=== PATIENT | female | born 1970 | race Caucasian/White ===

== ENCOUNTER → 2016-04-01 | Outpatient (CLI) | payer OTHER | LOC: RAD 14:36 | PROVIDERS: ATTEND Family Medicine | DX: J01.00 Acute maxillary sinusitis, unspecified (principal) | CPT/HCPCS: 70486 ==

== ENCOUNTER 2017-02-27 17:33 | Emergency (ER) | payer OTHER ==
[2017-02-27] MEDS ORDERED: KETOROLAC TROMETHAMINE INJ/PF 30 MG/1 ML SDV IV ONE (17:51)
[2017-02-27] MEDS ORDERED: NORMAL SALINE 1000 ML 1,000 ML IV ONE (17:51)
[2017-02-27] MEDS ORDERED: ONDANSETRON HCL INJ/PF 4 MG/2 ML SDV IV ONE (17:51)
--- NOTE | 2017-02-27 17:56 | ER Document Report ---
ED Medical Screen (RME) - General Chief Complaint: Abdominal Pain Stated Complaint: ABD PAIN Time Seen by Provider: 02/27/17 17:51 Mode of Arrival: Ambulatory Information source: Patient TRAVEL OUTSIDE OF THE [place] IN LAST 30 DAYS: No - HPI Patient complains to provider of: RLQ abd pain Onset: Yesterday - pt with onset of RLQ abdominal pain since yesterday with exacbation today, with vomiting and diarrhea - Related Data Allergies/Adverse Reactions: warfarin sodium [From Coumadin] Allergy (Verified 07/01/15 11:49) chest tightness Past Medical History - Social History Chew tobacco use (# tins/day): No Frequency of alcohol use: None Drug Abuse: None - Past Medical History Cardiac Medical History: Reports: Hx DVT, Hx Hypertension Denies: Hx Coronary Artery Disease, Hx Heart Attack Pulmonary Medical History: Denies: Hx Asthma - as a child , Hx Bronchitis, Hx COPD, Hx Pneumonia Neurological Medical History: Reports: Hx Migraine. Denies: Hx Cerebrovascular Accident, Hx Seizures Renal/ Medical History: Reports: Hx Kidney Stones. Denies: Hx Peritoneal Dialysis Musculoskeltal Medical History: Denies Hx Arthritis Psychiatric Medical History: Reports: Hx Depression Past Surgical History: Reports: Hx Section - post op hemorrhage - Immunizations Hx Diphtheria, Pertussis, Tetanus Vaccination: Yes - 2004 Physical Exam - Vital signs Vitals: Temp Pulse BP Pulse Ox 99.2 F 101 H 128/77 H 98 02/27/17 17:41 02/27/17 17:41 02/27/17 17:41 02/27/17 17:41 Course - Vital Signs Vital signs: Temp Pulse Resp BP Pulse Ox 99.2 F 101 H 128/77 H 98 02/27/17 17:41 02/27/17 17:41 02/27/17 17:41 02/27/17 17:41
[2017-02-27 18:38] LABS: ABSOLUTE BASOPHILS # (AUTO) 0.1 10^3/uL (0.0-0.2); ABSOLUTE EOSINOPHILS # (AUTO) 0.2 10^3/uL (0.0-0.6); ABSOLUTE LYMPHOCYTES (AUTO) 1.6 10^3/uL (0.5-4.7); ABSOLUTE MONOCYTES (AUTO) 0.7 10^3/uL (0.1-1.4); ABSOLUTE NEUT (AUTO) 3.8 10^3/uL (1.7-8.2); BASOPHILS % (AUTO) 0.9 % (0-2); EOSINOPHILS % (AUTO) 3.3 % (0-6); HEMATOCRIT 36.7 % (36.0-47.0); HGB HCT DIFFERENCE -0.7; LYMPHOCYTES % (AUTO) 25.8 % (13-45); MEAN CORPUSCULAR HEMOGLOBIN 26.1 pg (27.0-33.4); MEAN CORPUSCULAR HGB CONC 32.7 g/dL (32.0-36.0); MEAN CORPUSCULAR VOLUME 80 fl (80-97); MONOCYTES % (AUTO) 10.3 % (3-13); RED BLOOD COUNT 4.59 10^6/uL (3.72-5.28); RED CELL DISTRIBUTION WIDTH 16.1 % (11.5-14.0); SEGMENTED NEUTROPHILS % (AUTO) 59.7 % (42-78); WHITE BLOOD COUNT 6.4 10^3/uL (4.0-10.5)
[2017-02-27 18:45] LABS: APPEARANCE,URINE CLEAR; BILIRUBIN,URINE NEGATIVE (NEGATIVE); GLUCOSE, URINE NEGATIVE (NEGATIVE); KETONES,URINE NEGATIVE (NEGATIVE); LEUKOCYTE ESTERASE,URINE NEGATIVE (NEGATIVE); NITRITE,URINE NEGATIVE (NEGATIVE); PROTEIN,URINE NEGATIVE (NEGATIVE); URINE SPECIFIC GRAVITY 1.002; UROBILINOGEN,URINE NEGATIVE mg/dL (<2.0)
[2017-02-27 18:49] LABS: BACTERIA,URINE 1+ /HPF
[2017-02-27 18:53] LABS: ALANINE AMINOTRANSFERASE 29 U/L (9-52); ALBUMIN 4.3 g/dL (3.5-5.0); ALKALINE PHOSPHATASE 75 U/L (38-126); ANION GAP 13 (5-19); ASPARTATE AMINO TRANSFERASE 23 U/L (14-36); BILIRUBIN,DIRECT 0.2 mg/dL (0.0-0.4); BILIRUBIN,TOTAL 0.4 mg/dL (0.2-1.3); BLOOD UREA NITROGEN 7 mg/dL (7-20); CARBON DIOXIDE 25 mmol/L (22-30); CHLORIDE 101 mmol/L (98-107); CREATININE RESULT 0.66 mg/dL (0.52-1.25); GLUCOSE 89 mg/dL (75-110); LIPASE 122.1 U/L (23-300); POTASSIUM 4.3 mmol/L (3.6-5.0); SODIUM 139.1 mmol/L (137-145); TOTAL PROTEIN 6.9 g/dL (6.3-8.2)
--- NOTE | 2017-02-27 19:03 | RADIOLOGY REPORT (SQ) ---
EXAM DESCRIPTION: CT ABD/PELVIS NO ORAL OR IV COMPLETED DATE/TIME: 02/27/2017 6:38 pm REASON FOR STUDY: abd pain COMPARISON: 06/04/2013 mammogram TECHNIQUE: CT scan of the abdomen and pelvis performed without intravenous or oral contrast. Images reviewed with lung, soft tissue, and bone windows. Reconstructed coronal and sagittal MPR images revi ewed. All images stored on PACS. All CT scanners at this facility use dose modulation, iterative reconstruction, and/or weight based d osing when appropriate to reduce radiation dose to as low as reasonably achievable (ALARA). [facility]: Dose Right [facility]: CareDose [facility]: Dose Right [facility]: Teradose 4D [facility]: HiMom RADIATION DOSE: mGy. LIMITATIONS: None. FINDINGS: LOWER CHEST: Similar 4.5 cm cyst in the medial right breast. No nodules or infiltrates. NON-CONTRASTED LIVER, SPLEEN, ADRENALS: Evaluation limited by lack of IV contrast. No identified sign ificant masses. PANCREAS: No masses. No peripancreatic inflammatory changes. GALLBLADDER: No identified stones by CT criteria. No inflammatory changes to suggest cholecystitis. RIGHT KIDNEY AND URETER: No suspicious masses. Assessment limited by lack of IV contrast. No signif icant calcifications. No hydronephrosis or hydroureter. LEFT KIDNEY AND URETER: No suspicious masses. Assessment limited by lack of IV contrast. No signifi cant calcifications. No hydronephrosis or hydroureter. AORTA AND RETROPERITONEUM: No aneurysm. No retroperitoneal masses or adenopathy. BOWEL AND PERITONEAL CAVITY: No obvious masses or inflammatory changes. No free fluid. APPENDIX: Normal. PELVIS, BLADDER, AND ABDOMINAL WALL:3.8 cm right ovarian cyst. No free fluid. Bladder normal. BONES: No significant findings. OTHER: No other significant finding. IMPRESSION: No acute inflammatory changes or free fluid.3.8 cm right ovarian cyst. COMMENT: Quality ID # [id number]: Final reports with documentation of one or more dose reduction techniques (e.g., Automated exposure control, adjustment of the mA and/or kV according to patient size, use of iterative reconstruction technique) TECHNICAL DOCUMENTATION: JOB ID: [id number] [place]-72 2010 [email or web address]- All Rights Reserved
--- NOTE | 2017-02-27 22:23 | ER Document Report ---
ED GI/ - General Chief Complaint: Abdominal Pain Stated Complaint: ABD PAIN Time Seen by Provider: 02/27/17 17:51 Mode of Arrival: Ambulatory Notes: The patient is a 46-year-old female, past medical history , fibroids, presents with 1 day of right lower quadrant abdominal pain and nausea. She said the pain is a cramping sensation and she has not had this before. She denies vomiting, diarrhea, constipation, fevers, urinary symptoms, hematuria, vaginal bleeding, vaginal discharge, flank pain or back pain. TRAVEL OUTSIDE OF THE [place] IN LAST 30 DAYS: No - Related Data Allergies/Adverse Reactions: warfarin sodium [From Coumadin] Allergy (Verified 07/01/15 11:49) chest tightness Past Medical History - General Information source: Patient - Social History Smoking Status: Former Smoker Chew tobacco use (# tins/day): No Frequency of alcohol use: None Drug Abuse: None Family History: Reviewed & Not Pertinent, Other Patient has suicidal ideation: No Patient has homicidal ideation: No - Past Medical History Cardiac Medical History: Reports: Hx DVT, Hx Hypertension Denies: Hx Coronary Artery Disease, Hx Heart Attack Pulmonary Medical History: Denies: Hx Asthma - as a child , Hx Bronchitis, Hx COPD, Hx Pneumonia Neurological Medical History: Reports: Hx Migraine. Denies: Hx Cerebrovascular Accident, Hx Seizures Renal/ Medical History: Reports: Hx Kidney Stones. Denies: Hx Peritoneal Dialysis Musculoskeltal Medical History: Denies Hx Arthritis Psychiatric Medical History: Reports: Hx Depression Past Surgical History: Reports: Hx Section - post op hemorrhage - Immunizations Hx Diphtheria, Pertussis, Tetanus Vaccination: Yes - 2004 Review of Systems - Review of Systems Notes: REVIEW OF SYSTEMS: CONSTITUTIONAL: -fevers, -chills EENT: -eye pain, -difficulty swallowing, -nasal congestion CARDIOVASCULAR:-chest pain, -syncope. RESPIRATORY: -cough, -SOB GASTROINTESTINAL: +abdominal pain, +nausea, -vomiting, -diarrhea GENITOURINARY: -dysuria, -hematuria MUSCULOSKELETAL: -back pain, -neck pain SKIN: -rash or skin lesions. HEMATOLOGIC: -easy bruising or bleeding. LYMPHATIC: -swollen, enlarged glands. NEUROLOGICAL: -altered mental status or loss of consciousness, -headache, - neurologic symptoms PSYCHIATRIC: -anxiety, -depression. ALL OTHER SYSTEMS REVIEWED AND NEGATIVE. Physical Exam - Vital signs Vitals: Temp Pulse BP Pulse Ox 99.2 F 101 H 128/77 H 98 02/27/17 17:41 02/27/17 17:41 02/27/17 17:41 02/27/17 17:41 - Notes Notes: PHYSICAL EXAMINATION: GENERAL: Well-appearing, well-nourished and in no acute distress. HEAD: Atraumatic, normocephalic. EYES: Pupils equal round and reactive to light, extraocular movements intact, sclera anicteric, conjunctiva are normal. ENT: nares patent, oropharynx clear without exudates. Moist mucous membranes. NECK: Normal range of motion, supple without lymphadenopathy LUNGS: Breath sounds clear to auscultation bilaterally and equal. No wheezes rales or rhonchi. HEART: Regular rate and rhythm without murmurs ABDOMEN: Soft, mild RLQ tenderness, normoactive bowel sounds. No guarding, no rebound. No masses appreciated. EXTREMITIES: Normal range of motion, no pitting or edema. No cyanosis. NEUROLOGICAL: Cranial nerves grossly intact. Normal speech, normal gait. Normal sensory and motor exams. PSYCH: Normal mood, normal affect. SKIN: Warm, Dry, normal turgor, no rashes or lesions noted. Course - Re-evaluation Re-evalutation: Patient's blood work, urine, CT abdomen and pelvis and pelvic ultrasound do not show any emergent abnormalities. She is feeling much better and her nausea is under control. Instructed patient to stay hydrated and follow-up with her primary care physician and cloud security architect for further evaluation and treatment. - Vital Signs Vital signs: Temp Pulse Resp BP Pulse Ox 99.2 F 85 18 126/85 H 98 02/27/17 17:41 02/27/17 22:40 02/27/17 22:40 02/27/17 22:40 02/27/17 22:40 - Laboratory Result Diagrams: 02/27/17 18:12 02/27/17 18:12 Laboratory results interpreted by me: 02/27/17 18:12 [facility] 26.1 L RDW 16.1 H - Diagnostic Test Radiology reviewed: Image reviewed, Reports reviewed Radiology results interpreted by me: CT A/P: NAD. Right ovarian cyst. Pelvic US: No torsion. Fibroids. Discharge - Discharge Clinical Impression: Nausea Abdominal pain Qualifiers: Abdominal location: unspecified location Qualified Code(s): R10.9 - Unspecified abdominal pain Condition: Stable Disposition: HOME, SELF-CARE Additional Instructions: ABDOMINAL PAIN: There are many causes of abdominal pain. Pain can mean a serious problem requiring surgery (such as appendicitis). It can also be an innocent problem that goes away on its own (such as a viral infection). Often, time must pass to determine the cause of pain. The physician does not feel that hospitalization is necessary, at present. Things may change within the next 24 hours. Call the doctor or come back for re- examination if any problems occur, such as: (1) Pain that becomes more severe, steady, or becomes concentrated in one specific area. Also, pain that is more severe with movement or coughing. (2) Vomiting that persists or becomes more frequent. (3) Blood in the vomitus, urine, or bowel movements. Blood in the stool may have a tarry or black appearance. (4) Shaking chills or fever greater than 100 degrees F. (5) The abdomen becomes more distended or swollen. (6) Bowel movements cease. (7) Failure to improve as expected. NORMAL EXAM AND WORKUP: At this time, your examination and workup show no significant abnormality. No significant abnormal physical findings are noted. All laboratory, EKG, and imaging (x-ray, CT scans, ultrasound) studies that were ordered show no significant abnormality. Although your examination and all studies that were ordered showed no significant abnormal finding, there are no examinations and no studies that are 100% accurate. There is always the possibility that some abnormality could exist and not be detected with physical examination or within the limits and capabilities of laboratory and other studies. You should return or follow up as you were instructed on your visit today for further evaluation if your symptoms do not resolve. TORADOL INJECTION: You have been given an injection of ketorolac tromethamine (Toradol). This is an excellent, safe drug for pain control. It also has potent antiinflammatory action. You should have significant pain relief within about one hour. Toradol is not addicting and is non-sedating. It does not interfere with driving or work. Call or return if you develop itching, hives, shortness of breath, or rash. PAIN MEDICATION INJECTION: You have received an injection of a pain medication. You should experience significant pain relief within 45 minutes. This drug is a narcotic - - it will impair your judgement, slow your reaction time and make you sleepy ( as well as relieve your pain). Narcotics also can cause nausea. You should not drive, work with machinery, or perform any task requiring mental alertness until all effects of the medication are gone -- six to eight hours. Do not take any alcohol, or sedatives, and do not take any other medication without checking with your physician. ANTINAUSEA MEDICATION: You have been given a medication to suppress nausea and vomiting. This type of medication can be given as a shot, pill, or suppository. It will usually last for many hours. Pills and shots usually last six to eight hours, suppositories last about 12 hours. For the typical illness, only one or two doses of the medication may be necessary. Mild lightheadedness may occur. This type of medicine can cause drowsiness. Do not drive or operate dangerous machinery while under its influence. Do not mix with alcohol. See your doctor at once if you have muscle spasms or tightness, or uncontrollable motions (particularly of the neck, mouth, or jaw). Persistent vomiting or severe lightheadedness should also be evaluated by the physician. ANTISPASMODICS: You have been given a prescription for an antispasmodic medicine. This type of drug is used to decrease cramping and pain in the intestines. It is also used to decrease secretion of internal fluids (such as stomach acid in ulcer disease or pancreatic juice in pancreas disease). This medicine may cause drowsiness, especially with the first dose. Do not operate machinery or drive until all side effects have resolved. Do not combine with alcohol. Other common side effects include dry mouth and eyes. In older persons, antispasmodics can occasionally cause urinary retention, constipation, or trouble focusing the eyes. Glaucoma may be worsened by this medicine. ORAL NARCOTIC MEDICATION: You have been given a prescription for pain control. This medication is a narcotic. It's best taken with food, as nausea can result if taken on an empty stomach. Don't operate machinery or drive within six hours of taking this medication. Do not combine this medicine with alcohol, or with any medication which can cause sedation (such as cold tablets or sleeping pills) unless you get permission from the physician. Narcotics tend to cause constipation. If possible, drink plenty of fluids and eat a diet high in fiber and fruits. Please be aware that prescription narcotics also have the potential for abuse. People become addicted to these medications because of the general sense of wellbeing that they induce. This feeling along with a significant reduction in tension, anxiety, and aggression provides a stimulating seductive quality to these drugs. Once your pain is under control, we encourage you to discard your unused narcotics. FOLLOW-UP CARE: If you have been referred to a physician for follow-up care, call the physician s office for an appointment as you were instructed or within the next two days. If you experience worsening or a significant change in your symptoms, notify the physician immediately or return to the Emergency Department at any time for re-evaluation. FOLLOW-UP CARE: You should return for re-evaluation in 12 hours. This follow-up visit is important. If you are unable to return, or feel that the return visit is unnecessary, please call us. Prescriptions: Naproxen [Naprosyn 250 mg Tablet] 500 mg PO Q12H PRN #14 tablet PRN Reason: Ondansetron [Zofran Odt 4 mg Tablet] 1 - 2 tab PO Q4H PRN #15 tab.rapdis PRN Reason: For Nausea/Vomiting Referrals: FELIBERTO QUINTANILLA MD [Primary Care Provider] - Follow up as needed
[2017-02-27] MEDS ORDERED: HYDROCODONE/ACETAMINOPHEN 5-325 MG TABLET PO ONE (22:37)
--- NOTE | 2017-02-27 23:07 | RADIOLOGY REPORT (SQ) ---
EXAM DESCRIPTION: U/S NON OB PEL W/DOPPLER COMPLETED DATE/TIME: 02/27/2017 10:39 pm REASON FOR STUDY: RLQ pain, ovarian cyst on CT, R/O torsion COMPARISON: CT, same day. TECHNIQUE: Dynamic and static grayscale images acquired of the pelvis via transabdominal approach an d recorded on PACS. Additional selected color Doppler and spectral images recorded. LIMITATIONS: None. FINDINGS: UTERUS: 10.9 cm fibroid uterus includes a 4.2 cm submucosal/intramural fundal fibroid and 2.7 cm subserosal anterior uterine wall fibroid. ENDOMETRIAL STRIPE: No focal or generalized thickening. No masses. CERVIX: Nabothian cysts. RIGHT OVARY: 4.4 cm including a 3.3 cm cystic component within normal limits. RIGHT OVARY DOPPLER: Normal arterial vascular flow without evidence for torsion. LEFT OVARY: Not visualized appear FREE FLUID: None noted. OTHER: No other significant finding. MEASUREMENTS: UTERUS: 10.9 x 7 x 9 cm. ENDOMETRIAL STRIPE: 1.1 cm thickness. RIGHT OVARY: 4.4 x 4 x 4 cm. LEFT OVARY: Not visualized. IMPRESSION: No acute findings. Fibroid uterus. TECHNICAL DOCUMENTATION: JOB ID: [id number] [employer]- All Rights Reserved
[2017-02-27 23:34] VITALS: BP 117/76
== END 2017-02-27 23:32 | disposition home or self-care (01) ==
LOC: ER 17:33
DX: R11.0 Nausea (principal); R10.31 Right lower quadrant pain; I10 Essential (primary) hypertension; Z87.891 Personal history of nicotine dependence; Z86.718 Personal history of other venous thrombosis and embolism; Z87.442 Personal history of urinary calculi
CPT/HCPCS: 99284; 96361; 96374; 96375; 36415; 83690; 85025; 80053; 81001; 76856; 93976; 74176; J1885; J2405; J7030

== ENCOUNTER → 2017-05-06 | Outpatient (CLI) | payer OTHER ==
--- NOTE | 2017-05-06 15:09 | WOMENS IMAGING REPORT ---
EXAM DESCRIPTION: BILAT SCREENING MAMMO W/CAD COMPLETED DATE/TIME: 05/06/2017 2:54 pm REASON FOR STUDY: ROUTINE SCREENING; Z12.31 Z12.31 ENCNTR SCREEN MAMMOGRAM FOR MALIGNANT NEOPLASM O F CAR[place] COMPARISON: Multiple since 2008 TECHNIQUE: Standard craniocaudal and mediolateral oblique views of each breast recorded using Zhenaia l acquisition. LIMITATIONS: None. FINDINGS: Findings present which are benign by mammographic criteria. No suspicious masses, calcifi cations or architectural distortion. Pertinent benign findings: Stable right breast 5.5 cm fibroadenoma. Benign right breast calcificatio ns in the skin medially. Stable left breast cysts and intramammary lymph nodes. Read with the assistance of CAD. .[facility] - R2 Cenova Version 1.3 .[facility] - R2 Cenova Version 1.3 .[facility] - R2 Cenova Version 2.4 .[facility] [place]2 Cenova Version 2.4 .[facility] - R2 Cut In Worker Version 9.2 Benign mammographic findings may include one or more of the following: Smooth masses, popcorn/rim/co arse calcifications, asymmetries, post-procedure changes, and lesions with long-standing stability. IMPRESSION: BENIGN MAMMOGRAPHIC FINDINGS. BIRADS 2 BREAST DENSITY: b. There are scattered areas of fibroglandular density. BIRAD: 2 BENIGN FINDING(S) RECOMMENDATION: ROUTINE SCREENING Please continue yearly bilateral screening mammography and April 2018. Please consider bilateral screening tomosynthesis COMMENT: The patient has been notified of the results by letter per MQSA requirements. Additional no tification policies are in place for contacting patient with suspicious or incomplete findings. Quality ID #[id number]: The [employer] recommends an annual screening mammogram for women aged 40 years or over. This facility utilizes a reminder system to ensure that all patients receive reminder letters, and/or direct phone calls for appointments. This includes reminders for routine scr eening mammograms, diagnostic mammograms, or other Breast Imaging Interventions when appropriate. Th is patient will be placed in the appropriate reminder system. The [employer] (ACR) has developed recommendations for screening MRI of the breast s in certain patient populations, to be used in conjunction with mammography. Breast MRI surveillanc e may be appropriate for women with more than 20% lifetime risk of developing breast cancer as deter mined by genetic testing, significant family history of the disease, or history of mantle radiation f or Hodgkins Disease. ACR Practice Guidelines 2008. TECHNICAL DOCUMENTATION: FINDING NUMBER: (1) ASSESSMENT: (1) JOB ID: [id number] [employer]- All Rights Reserved
== END ==
LOC: WI 14:38
PROVIDERS: ATTEND Family Medicine
DX: Z12.31 Encounter for screening mammogram for malignant neoplasm of breast (principal)
CPT/HCPCS: 77067

== ENCOUNTER → 2018-05-23 | Outpatient (CLI) | payer OTHER ==
[2018-05-23 14:06] LABS: ABSOLUTE BASOPHILS # (AUTO) 0.1 10^3/uL (0.0-0.2); ABSOLUTE EOSINOPHILS # (AUTO) 0.2 10^3/uL (0.0-0.6); ABSOLUTE LYMPHOCYTES (AUTO) 1.9 10^3/uL (0.5-4.7); ABSOLUTE MONOCYTES (AUTO) 0.6 10^3/uL (0.1-1.4); BASOPHILS % (AUTO) 0.8 % (0-2); EOSINOPHILS % (AUTO) 2.6 % (0-6); HEMATOCRIT 33.3 % (36.0-47.0); HEMOGLOBIN 11.1 g/dL (12.0-15.5); LYMPHOCYTES % (AUTO) 24.5 % (13-45); MEAN CORPUSCULAR HEMOGLOBIN 25.5 pg (27.0-33.4); MEAN CORPUSCULAR HGB CONC 33.4 g/dL (32.0-36.0); MEAN CORPUSCULAR VOLUME 77 fl (80-97); MONOCYTES % (AUTO) 7.4 % (3-13); PLATELET COUNT 315 10^3/uL (150-450); RED BLOOD COUNT 4.36 10^6/uL (3.72-5.28); RED CELL DISTRIBUTION WIDTH 16.9 % (11.5-14.0); SEGMENTED NEUTROPHILS % (AUTO) 64.7 % (42-78); TOTAL CELLS COUNTED % (AUTO) 100 %; WHITE BLOOD COUNT 7.7 10^3/uL (4.0-10.5)
[2018-05-23 15:00] LABS: ALANINE AMINOTRANSFERASE 9 U/L (9-52); ALBUMIN 4.4 g/dL (3.5-5.0); ALKALINE PHOSPHATASE 84 U/L (38-126); ANION GAP 12 (5-19); ASPARTATE AMINO TRANSFERASE 21 U/L (14-36); BILIRUBIN,DIRECT 0.2 mg/dL (0.0-0.4); BILIRUBIN,TOTAL 0.3 mg/dL (0.2-1.3); BLOOD UREA NITROGEN 6 mg/dL (7-20); CALCIUM 10.2 mg/dL (8.4-10.2); CARBON DIOXIDE 25 mmol/L (22-30); CHLORIDE 102 mmol/L (98-107); CHOLESTEROL 209.36 mg/dL (0-200); GLUCOSE 103 mg/dL (75-110); IRON(TIBC) 41.9 ug/dL (37-170); POTASSIUM 4.4 mmol/L (3.6-5.0); TOTAL PROTEIN 7.3 g/dL (6.3-8.2); TRIGLYCERIDES 195 mg/dL (<150)
[2018-05-23 15:22] LABS: DIRECT LDL 130 mg/dL (<100)
== END ==
LOC: OD 13:08
PROVIDERS: ATTEND Family Medicine
DX: D50.0 Iron deficiency anemia secondary to blood loss (chronic) (principal); I10 Essential (primary) hypertension; R73.01 Impaired fasting glucose
CPT/HCPCS: 36415; 80053; 80061; 83036; 83540; 83550; 85025

== ENCOUNTER 2018-11-05 03:16 | Emergency (ER) | payer OTHER ==
[2018-11-05] MEDS ORDERED: ONDANSETRON HCL INJ/PF 4 MG/2 ML SDV IV ONE (04:08)
[2018-11-05] MEDS ORDERED: FENTANYL CITRATE INJ/PF 100 MCG/2 ML AMPUL IV ONE (04:57)
[2018-11-05 05:02] LABS: APPEARANCE,URINE CLEAR; BILIRUBIN,URINE NEGATIVE (NEGATIVE); COLOR,URINE STRAW; GLUCOSE, URINE NEGATIVE (NEGATIVE); KETONES,URINE NEGATIVE (NEGATIVE); LEUKOCYTE ESTERASE,URINE TRACE (NEGATIVE); NITRITE,URINE NEGATIVE (NEGATIVE); PROTEIN,URINE NEGATIVE (NEGATIVE); URINE SPECIFIC GRAVITY 1.006; UROBILINOGEN,URINE NEGATIVE mg/dL (<2.0)
[2018-11-05 05:53] LABS: ABSOLUTE EOSINOPHILS # (AUTO) 0.2 10^3/uL (0.0-0.6); ABSOLUTE LYMPHOCYTES (AUTO) 1.9 10^3/uL (0.5-4.7); ABSOLUTE MONOCYTES (AUTO) 0.6 10^3/uL (0.1-1.4); TOTAL CELLS COUNTED % (AUTO) 100 %
[2018-11-05 06:04] LABS: ALBUMIN 4.5 g/dL (3.5-5.0); ALKALINE PHOSPHATASE 74 U/L (38-126); ANION GAP 10 (5-19); ASPARTATE AMINO TRANSFERASE 36 U/L (14-36); BILIRUBIN,DIRECT 0.3 mg/dL (0.0-0.4); BILIRUBIN,TOTAL 0.5 mg/dL (0.2-1.3); BLOOD UREA NITROGEN 10 mg/dL (7-20); CALCIUM 9.8 mg/dL (8.4-10.2); CARBON DIOXIDE 29 mmol/L (22-30); CHLORIDE 97 mmol/L (98-107); GLUCOSE 87 mg/dL (75-110); POTASSIUM 3.6 mmol/L (3.6-5.0); TOTAL PROTEIN 7.8 g/dL (6.3-8.2)
[2018-11-05 06:14] LABS: ABSOLUTE BASOPHILS # (AUTO) 0.1 10^3/uL (0.0-0.2); ABSOLUTE NEUT (AUTO) 3.9 10^3/uL (1.7-8.2); BASOPHILS % (AUTO) 0.9 % (0-2); EOSINOPHILS % (AUTO) 2.8 % (0-6); HEMATOCRIT 36.1 % (36.0-47.0); HEMOGLOBIN 12.1 g/dL (12.0-15.5); LYMPHOCYTES % (AUTO) 28.6 % (13-45); MEAN CORPUSCULAR HEMOGLOBIN 26.1 pg (27.0-33.4); MEAN CORPUSCULAR HGB CONC 33.4 g/dL (32.0-36.0); MEAN CORPUSCULAR VOLUME 78 fl (80-97); MONOCYTES % (AUTO) 9.3 % (3-13); PLATELET COUNT 245 10^3/uL (150-450); RED BLOOD COUNT 4.63 10^6/uL (3.72-5.28); RED CELL DISTRIBUTION WIDTH 18.2 % (11.5-14.0); SEGMENTED NEUTROPHILS % (AUTO) 58.4 % (42-78); WHITE BLOOD COUNT 6.8 10^3/uL (4.0-10.5)
--- NOTE | 2018-11-05 06:18 | RADIOLOGY REPORT (SQ) ---
EXAM DESCRIPTION: XR CHEST 2 VIEWS COMPLETED DATE/TME: 11/05/2018 04:48 CLINICAL HISTORY: 48 years, Female, sob Comparison: None FINDINGS: No focal lung consolidation. No pleural effusion. No pneumothorax. Cardiac and mediastinal silhouette is unremarkable. No acute osseous abnormality. Soft tissues are unremarkable. IMPRESSION: No acute findings. No focal lung consolidation.
--- NOTE | 2018-11-05 06:32 | RADIOLOGY REPORT (SQ) ---
EXAM DESCRIPTION: CT ABDOMEN PELVIS WITHOUT IV CONTRAST COMPLETED DATE/TME: 11/05/2018 04:49 CLINICAL HISTORY: Left flank pain. COMPARISON: 02/27/2017 TECHNIQUE: CT of the abdomen and pelvis without IV contrast. Evaluation of the solid organs and vasculature is suboptimal due to lack of IV contrast. DLP: 733.60 mGy-cm FINDINGS: Lung Bases: Patchy opacities in the lingula. Bones: No destructive bone lesions identified. Abdomen: Liver: The liver has normal size and density. Gallbladder: No calcified gallstones. Spleen, Pancreas, and Adrenal Glands: The spleen, pancreas, and adrenal glands are unremarkable. Kidneys: No obstructing ureteral calculi identified. Mild left hydronephrosis. Vasculature: The aorta and IVC have normal caliber and position. Stomach: The stomach and duodenum have normal course. Other: No free intraperitoneal air. Tiny fat-containing umbilical hernia. No free fluid or lymphadenopathy. Pelvis: Bladder: Urinary bladder is unremarkable. Bowel: No dilated loops of large or small bowel. Scattered diverticula of the colon. Mild soft tissue prominence of the ileocecal valve of indeterminate etiology. This measures 3.4 x 3.4 cm. Appendix: Normal appendix. Pelvis: Lobular contour of the uterus likely represents fibroids. IMPRESSION: 1. Mild left hydronephrosis without obstructing ureteral calculus identified. This may represent recently passed left ureteral calculus. 2. Mildly prominent soft tissue at the ileocecal valve of indeterminate etiology which is new from the comparison study measuring 3.4 cm. Correlation with colonoscopy recommended. 3. Diverticulosis without evidence of acute diverticulitis. 4. Fibroid uterus. This exam was performed according to our departmental dose-optimization program, which includes automated exposure control, adjustment of the mA and/or kV according to patient size and/or use of iterative reconstruction technique.
[2018-11-05 07:13] VITALS: BP 108/72
--- NOTE | 2018-11-05 07:16 | ER Document Report ---
Addendum entered and electronically signed by KASHIF SAHTON NP 11/08/18 16:29: Discharge - Discharge Clinical Impression: Left flank pain Pneumonia Qualifiers: Pneumonia type: due to unspecified organism Laterality: unspecified laterality Lung location: unspecified part of lung Qualified Code(s): J18.9 - Pneumonia, unspecified organism Condition: Stable Disposition: HOME, SELF-CARE Instructions: Kidney Stone ([facility]), Pneumonia ([facility]) Additional Instructions: As we discussed you have been seen and treated in the emergency department for recently passing a kidney stone, and pneumonia. Please make sure you are taking antibiotics as prescribed. Please also make sure you follow-up with your primary care provider in the next 24 to 48 hours. Please return to the emerge ncy room should you have any further concerns. I have given you phone numbers for Dr. Morales, he has a asset protection representative in this area. As we discussed you should follow-up with him for colonoscopy based on your CT findings. Prescriptions: Amox Tr/Potassium Clavulanate [Augmentin 875-125 mg Tablet] 1 tab PO BID #20 tablet Levofloxacin [Levaquin 750 mg Tablet] 750 mg PO DAILY #5 tablet Paroxetine HCl [Paxil 20 mg Tablet] 20 mg PO DAILY 30 Days tablet Telmisartan/Hydrochlorothiazid [Telmisartan-Hctz 80-25 mg Tab] 1 each PO DAILY #30 tablet Forms: Return to Work Referrals: BETH MORALES MD [ACTIVE STAFF] - Follow up as needed FELIBERTO QUINTANILLA MD [Primary Care Provider] - Follow up as needed Original Note: ED General - General Chief Complaint: Abdominal Pain Stated Complaint: LEFT SIDE ABDOMINAL PAIN Time Seen by Provider: 11/05/18 04:06 Primary Care Provider: BETH MORALES MD [ACTIVE STAFF] - Follow up as needed FELIBERTO QUINTANILLA MD [Primary Care Provider] - Follow up as needed Notes: Patient is a 48-year-old female presents to the emergency department for left- sided flank pain radiating to her left lower abdominal for the last 2 days. Patient also complaining of hematuria with intermittent dysuria. States she is nauseated but has no episodes of vomiting or diarrhea. Patient's denying any fevers. Patient states that in August she was diagnosed with pneumonia, placed on antibiotics and was reevaluated in September. States she was placed on a different antibiotic in September and was supposed to get reevaluated by her primary care provider but was unable to get an appointment until November. States she continues with a generalized cough at night but is denying any fevers. Patient states she does have a history of kidney stones and knows she passed a "rather large stone" approximately 2 days ago. Past medical history: Kidney stones, hypertension, depression, DVT, anemia Allergies: Coumadin Medications: Paxil, telmisa/HCTZ TRAVEL OUTSIDE OF THE [place] IN LAST 30 DAYS: No - Related Data Allergies/Adverse Reactions: warfarin sodium [From Coumadin] Allergy (Verified 11/05/18 03:59) chest tightness Past Medical History - General Information source: Patient - Social History Smoking Status: Former Smoker Frequency of alcohol use: Rare Drug Abuse: None Family History: Reviewed & Not Pertinent, Other Patient has suicidal ideation: No Patient has homicidal ideation: No - Past Medical History Cardiac Medical History: Reports: Hx DVT, Hx Hypertension Denies: Hx Coronary Artery Disease, Hx Heart Attack Pulmonary Medical History: Denies: Hx Asthma - as a child , Hx Bronchitis, Hx COPD, Hx Pneumonia Neurological Medical History: Reports: Hx Migraine. Denies: Hx Cerebrovascular Accident, Hx Seizures Renal/ Medical History: Reports: Hx Kidney Stones. Denies: Hx Peritoneal Dialysis Musculoskeletal Medical History: Denies Hx Arthritis Psychiatric Medical History: Reports: Hx Depression Past Surgical History: Reports: Hx Section - post op hemorrhage - Immunizations Hx Diphtheria, Pertussis, Tetanus Vaccination: Yes - 2004 Review of Systems - Review of Systems Constitutional: denies: Fever EENT: No symptoms reported Cardiovascular: denies: Chest pain Respiratory: See HPI Gastrointestinal: See HPI Genitourinary: See HPI Female Genitourinary: See HPI Musculoskeletal: See HPI Skin: No symptoms reported Hematologic/Lymphatic: No symptoms reported Neurological/Psychological: No symptoms reported Physical Exam - Vital signs Vitals: Temp Pulse Resp BP Pulse Ox 98.3 F 83 18 107/70 98 11/05/18 03:54 11/05/18 03:54 11/05/18 03:54 11/05/18 03:54 11/05/18 03:54 - Notes Notes: GENERAL: Alert, interacts well. No acute distress. HEAD: Normocephalic, atraumatic. EYES: Pupils equal, round, and reactive to light. Extraocular movements intact. ENT: Oral mucosa moist, tongue midline. NECK: Full range of motion. Supple. Trachea midline. LUNGS: Clear to auscultation bilaterally, no wheezes, rales, or rhonchi. No respiratory distress. HEART: Regular rate and rhythm. No murmur ABDOMEN: Soft, generalized tenderness left flank radiating around to left lower quadrant. Non-distended. Bowel sounds present in all 4 quadrants. EXTREMITIES: Moves all 4 extremities spontaneously. No edema, normal radial and dorsalis pedis pulses bilaterally. No cyanosis. BACK: no cervical, thoracic, lumbar midline tenderness. No saddle anesthesia, normal distal neurovascular exam. NEUROLOGICAL: Alert and oriented x3. Normal speech. cranial nerves II through XII grossly intact PSYCH: Normal affect, normal mood. SKIN: Warm, dry, normal turgor. No rashes or lesions noted. Course - Re-evaluation Re-evalutation: 11/05/18 07:06 Patient states in August she was placed on a Z-Lc for pneumonia. States she returned to her primary care provider who stated she still had pneumonia in the beginning of September. She was placed on Augmentin at that time. Patient states she was supposed to go back to her primary care provider for repeat examination but was unable to get an appointment until the end of November. Patient states she is allergic to doxycycline. States she is unsure of what her allergy is but states "I just know I cannot have that medicine." Based on patient's CT imaging results we will treat with levofloxacin with close follow-up with primary care provider. Patient states she will call her primary care provider and attempt to get an appointment earlier than the end of November. She is requesting refill on her Paxil and blood pressure medication. Laboratory 11/05/18 11/05/18 11/05/18 04:01 05:00 05:00 WBC 6.8 RBC 4.63 Hgb 12.1 Hct 36.1 MCV 78 L MCH 26.1 L MCHC 33.4 RDW 18.2 H Plt Count 245 Seg Neutrophils % 58.4 Lymphocytes % 28.6 Monocytes % 9.3 Eosinophils % 2.8 Basophils % 0.9 Absolute Neutrophils 3.9 Absolute Lymphocytes 1.9 Absolute Monocytes 0.6 Absolute Eosinophils 0.2 Absolute Basophils 0.1 Sodium 135.5 L Potassium 3.6 Chloride 97 L Carbon Dioxide 29 Anion Gap 10 BUN 10 Creatinine 0.67 Est GFR ( Amer) > 60 Est GFR (Non-Af Amer) > 60 Glucose 87 Calcium 9.8 Total Bilirubin 0.5 Direct Bilirubin 0.3 Neonat Total Bilirubin Not Reportable Neonat Direct Bilirubin Not Reportable Neonat Indirect Bili Not Reportable AST 36 ALT 14 Alkaline Phosphatase 74 Total Protein 7.8 Albumin 4.5 Lipase 100.7 Urine Color STRAW Urine Appearance CLEAR Urine pH 6.0 Ur Specific [place] 1.006 Urine Protein NEGATIVE Urine Glucose (UA) NEGATIVE Urine Ketones NEGATIVE Urine Blood NEGATIVE Urine Nitrite NEGATIVE Urine Bilirubin NEGATIVE Urine Urobilinogen NEGATIVE Ur Leukocyte Esterase TRACE H Urine WBC (Auto) 5 Urine RBC (Auto) 1 U Hyaline Cast (Auto) 4 Squamous Epi Cells Auto 2 Urine Mucus (Auto) RARE Urine Ascorbic Acid NEGATIVE Urine HCG, Qual NEGATIVE Chest X-Ray 11/05/18 04:48 IMPRESSION: No acute findings. No focal lung consolidation. Abdomen/Pelvis CT 11/05/18 04:49 IMPRESSION: 1. Mild left hydronephrosis without obstructing ureteral calculus identified. This may represent recently passed left ureteral calculus. 2. Mildly prominent soft tissue at the ileocecal valve of indeterminate etiology which is new from the comparison study measuring 3.4 cm. Correlation with colonoscopy recommended. 3. Diverticulosis without evidence of acute diverticulitis. 4. Fibroid uterus. This exam was performed according to our departmental dose-optimization program, which includes automated exposure control, adjustment of the mA and/or kV according to patient size and/or use of iterative reconstruction technique. Discussed at length with patient incidental findings of #2 as noted above. Discussed need for gastroenterology follow-up. Patient states she will attempt to get in with her primary care provider but again was unable to get an appointment to the end of November. She is requesting refills on her blood pressure medication and her Paxil. Patient states she overall feels a lot better after treatments in the emergency department. Has been able to p.o. fluids with no nausea or vomiting. Discussed pain could be due to recently passed kidney stone or prominent soft tissue at the ileocecal valve noted on CT. At this time will discharge with return precautions and follow-up recommendations. Verbal discharge instructions given a the bedside and opportunity for questions given. Medication warnings reviewed. Patient is in agreement with this plan and has verbalized understanding of return precautions and the need for primary care follow-up in the next 24-72 hours. This medical record was dictated with voice recognizing software. There may be grammatical, syntax errors that are unintended. - Vital Signs Vital signs: Temp Pulse Resp BP Pulse Ox 98.4 F 78 20 108/72 98 11/05/18 07:10 11/05/18 07:10 11/05/18 07:10 11/05/18 07:10 11/05/18 07:10 - Laboratory Result Diagrams: 11/05/18 05:00 11/05/18 05:00 Laboratory results interpreted by me: 11/05/18 11/05/18 11/05/18 04:01 05:00 05:00 MCV 78 L MCH 26.1 L RDW 18.2 H Sodium 135.5 L Chloride 97 L Ur Leukocyte Esterase TRACE H Discharge - Discharge Clinical Impression: Left flank pain Pneumonia Qualifiers: Pneumonia type: due to unspecified organism Laterality: unspecified laterality Lung location: unspecified part of lung Qualified Code(s): J18.9 - Pneumonia, unspecified organism Condition: Stable Disposition: HOME, SELF-CARE Instructions: Kidney Stone ([facility]), Pneumonia ([facility]) Additional Instructions: As we discussed you have been seen and treated in the emergency department for recently passing a kidney stone, and pneumonia. Please make sure you are taking antibiotics as prescribed. Please also make sure you follow-up with your primary care provider in the next 24 to 48 hours. Please return to the emergency room should you have any further concerns. I have given you phone numbers for Dr. Morales, he has a asset protection representative in this area. As we discussed you should follow-up with him for colonoscopy based on your CT findings. Prescriptions: Levofloxacin [Levaquin 750 mg Tablet] 750 mg PO DAILY #5 tablet Paroxetine HCl [Paxil 20 mg Tablet] 20 mg PO DAILY 30 Days tablet Telmisartan/Hydrochlorothiazid [Telmisartan-Hctz 80-25 mg Tab] 1 each PO DAILY #30 tablet Forms: Return to Work Referrals: FELIBERTO QUINTANILLA MD [Primary Care Provider] - Follow up as needed BETH MORALES MD [ACTIVE STAFF] - Follow up as needed
[2018-11-05] MEDS ORDERED: HYDROCODONE/ACETAMINOPHEN 5-325 MG (6 TAB/ER DISP) PO PRN (07:33)
--- NOTE | 2018-11-08 16:30 | ER Document Report ---
Doctor's Note Notes: 11/08/18 16:29 Patient called stating that she had the Levaquin filled and had dizziness, redness and a flushed feeling after taking it on 11/05/2018. She states that she is still having symptoms of cough and congestion consistent with the pneumonia she was diagnosed with your on 11/05/2010. Called in on 11/08/18 as pt called stating allergic to levaquin. This was called into [facility] on [address].
== END 2018-11-05 07:40 | disposition home or self-care (01) ==
LOC: ER 03:16
DX: D25.9 Leiomyoma of uterus, unspecified (principal); J18.9 Pneumonia, unspecified organism; N13.30 Unspecified hydronephrosis; K57.30 Diverticulosis of large intestine without perforation or abscess without bleeding; R10.9 Unspecified abdominal pain; R31.9 Hematuria, unspecified; R30.0 Dysuria; R11.0 Nausea; R05 Cough; I10 Essential (primary) hypertension; F32.9 Major depressive disorder, single episode, unspecified; Z79.899 Other long term (current) drug therapy; Z88.8 Allergy status to other drugs, medicaments and biological substances; Z87.891 Personal history of nicotine dependence; Z88.1 Allergy status to other antibiotic agents
CPT/HCPCS: 99284; 96374; 96375; 36415; 87086; 83690; 85025; 81025; 87088; 80053; 81001; 87186; 71046; 74176; J3010; J2405

== ENCOUNTER 2019-06-28 22:30 | Emergency (ER) | payer OTHER ==
[2019-06-28 23:18] LABS: ABSOLUTE BASOPHILS # (AUTO) 0.1 10^3/uL (0.0-0.2); ABSOLUTE EOSINOPHILS # (AUTO) 0.2 10^3/uL (0.0-0.6); ABSOLUTE LYMPHOCYTES (AUTO) 2.4 10^3/uL (0.5-4.7); ABSOLUTE MONOCYTES (AUTO) 0.8 10^3/uL (0.1-1.4); ABSOLUTE NEUT (AUTO) 4.8 10^3/uL (1.7-8.2); BASOPHILS % (AUTO) 0.7 % (0-2); EOSINOPHILS % (AUTO) 2.3 % (0-6); HEMATOCRIT 32.6 % (36.0-47.0); HEMOGLOBIN 10.9 g/dL (12.0-15.5); LYMPHOCYTES % (AUTO) 28.8 % (13-45); MEAN CORPUSCULAR HEMOGLOBIN 26.8 pg (27.0-33.4); MEAN CORPUSCULAR HGB CONC 33.4 g/dL (32.0-36.0); MEAN CORPUSCULAR VOLUME 80 fl (80-97); MONOCYTES % (AUTO) 9.4 % (3-13); PLATELET COUNT 383 10^3/uL (150-450); RED BLOOD COUNT 4.06 10^6/uL (3.72-5.28); RED CELL DISTRIBUTION WIDTH 15.3 % (11.5-14.0); SEGMENTED NEUTROPHILS % (AUTO) 58.8 % (42-78); TOTAL CELLS COUNTED % (AUTO) 100 %; WHITE BLOOD COUNT 8.2 10^3/uL (4.0-10.5)
--- NOTE | 2019-06-28 23:37 | ER Document Report ---
ED General - General Chief Complaint: Chest Tightness Stated Complaint: CHEST TIGHTNESS Time Seen by Provider: 06/28/19 23:34 Primary Care Provider: FELIBERTO QUINTANILLA MD [Primary Care Provider] - Follow up as needed Notes: 49-year-old female presents the emergency department complaining of a two-week history of cough and shortness of breath associated with rhinorrhea and sore throat. Patient states that the cough got worse over the past week and now she feels like her chest is tight and like she might get better if she could have a breathing treatment. Patient does state that she was using an inhaler for exercise-induced asthma and her inhaler makes her feel better when she has this cough however she ran out of it yesterday or the day before. Cough is productive of clear sputum. States multiple other people at work had similar symptoms, 3 of them were tested for the novel coronavirus and they were all negative. Admits fever to a T-max of 100.0. Also admits chills. Denies nausea, vomiting, diarrhea. Denies any true pain in her chest, only complains of tightness like she cannot take a deep breath. States it has been the same for several days. TRAVEL OUTSIDE OF THE [place] IN LAST 30 DAYS: No - Related Data Allergies/Adverse Reactions: bee venom protein (honey bee) Allergy (Severe, Verified 06/28/19 23:14) Anaphylaxis warfarin sodium [From Coumadin] Allergy (Verified 11/05/18 03:59) chest tightness seafood Allergy (Severe, Uncoded 06/28/19 23:13) Past Medical History - General Information source: Patient - Social History Smoking Status: Never Smoker Drug Abuse: None Family History: Reviewed & Not Pertinent Patient has suicidal ideation: No Patient has homicidal ideation: No - Past Medical History Cardiac Medical History: Reports: Hx DVT, Hx Hypertension Denies: Hx Coronary Artery Disease, Hx Heart Attack Pulmonary Medical History: Denies: Hx Asthma - as a child , Hx Bronchitis, Hx COPD, Hx Pneumonia Neurological Medical History: Reports: Hx Migraine. Denies: Hx Cerebrovascular Accident, Hx Seizures Renal/ Medical History: Reports: Hx Kidney Stones. Denies: Hx Peritoneal Dialysis Musculoskeletal Medical History: Denies Hx Arthritis Psychiatric Medical History: Reports: Hx Depression Past Surgical History: Reports: Hx Section - post op hemorrhage - Immunizations Hx Diphtheria, Pertussis, Tetanus Vaccination: Yes - 2004 Review of Systems - Review of Systems Constitutional: See HPI, Chills, Fever. denies: Diaphoresis EENT: See HPI, Nose congestion, Nose discharge Cardiovascular: See HPI, Chest pain - Classified as a tightness. Denies any t rue pain. Respiratory: See HPI, Cough, Short of breath Gastrointestinal: No symptoms reported -: Yes All other systems reviewed and negative Physical Exam - Vital signs Vitals: Temp Pulse Resp BP Pulse Ox 98.4 F 100 16 124/67 99 06/28/19 22:43 06/28/19 22:43 06/28/19 22:43 06/28/19 22:43 06/28/19 22:43 Interpretation: Normal - Notes Notes: GENERAL: Alert, interacts well. No acute distress. HEAD: Normocephalic, atraumatic EYES: Pupils equal, round and reactive to light, extraocular movements intact. ENT: Oral mucosa moist, tongue midline. NECK: Full range of motion, supple, trachea midline. LUNGS: Clear to auscultation bilaterally, no wheezes, rales or rhonchi, no respiratory distress. HEART: Regular rate and rhythm, no murmurs, gallops, rubs. ABDOMEN: Soft, nontender, nondistended, bowel sounds present in all 4 quadrants. EXTREMITIES: Moves all 4 extremities spontaneously, no edema, radial and dorsalis pedis pulses 2/4 bilaterally. No cyanosis. NEUROLOGICAL: Alert and oriented x3, normal speech. PSYCH: Normal mood, normal affect. SKIN: Warm, Dry, normal turgor, no rashes or lesions noted. Course - Re-evaluation Re-evalutation: 06/29/19 01:06 CBC shows anemia with a hemoglobin of 10.9, CMP shows slightly low sodium otherwise unremarkable, cardiac enzymes negative, urinalysis unremarkable, flu swabs are negative, patient will be tested for now for coronavirus. Chest x-ray does not show any acute process, no signs of pneumonia. EKG is nonischemic. - Vital Signs Vital signs: Temp Pulse Resp BP Pulse Ox 98 F 76 20 121/65 100 06/29/19 00:50 06/29/19 00:50 06/29/19 00:50 06/29/19 00:50 06/29/19 00:50 - Laboratory Result Diagrams: 06/28/19 23:00 06/28/19 23:00 Laboratory results interpreted by me: 06/28/19 06/28/19 23:00 23:00 Hgb 10.9 L Hct 32.6 L MCH 26.8 L RDW 15.3 H Sodium 134.1 L Chloride 97 L - EKG Interpretation by Me Additional EKG results interpreted by me: 06/28/19 23:37 EKG shows sinus rhythm at a rate of 91, interventricular conduction delay, poor R wave progression, left axis deviation, T wave flattening in lead III, T wave inversion in V3, T wave flattening in V4, no ST segment elevations or depressions per my interpretation. Discharge - Discharge Clinical Impression: Viral upper respiratory tract infection with cough Condition: Stable Disposition: HOME, SELF-CARE Additional Instructions: Today your chest x-ray did not show any signs of pneumonia. Your flu swabs were negative. I suspect your cough is coming from a viral infection. Your oxygen level is not so low that you need to be admitted. I would like you to use the inhaler with spacer that we gave you, 2 puffs every 4 hours as needed to decrease cough or improve your breathing. If you have to use it more often than every 4 hours, if simply walking across the room makes you feel like you are going to pass out or like you just walked up 2 flights of steps please return to the emergency department. Please let any healthcare personnel that you see know that you have been tested for coronavirus. This includes if you need to return to the emergency department. Please use nasal saline rinses such as a NetiPot or NeilMed Sinus Rinses. Please use nasal steroid such as Nasonex 1 squirt per nostril twice a day to decrease inflammation and swelling. You may buy this over the counter. Please also use [id number] decongestants according to their directions on the box such as Sudafed during the day and Benadryl at night. You were tested for coronavirus (COVID 19) but these results may take 7-11 days or more to come back. Please stay in your house until they are resulted back or until you have been completely symptom-free for at least 3 days. There is no sign of heart attack on your blood work or on your EKG. Prescriptions: Albuterol Sulfate [Albuterol Sulfate Hfa] 8.5 gm IH Q4HP PRN #1 [email or web address] PRN Reason: Forms: Return to Work Referrals: FELIBERTO QUINTANILLA MD [Primary Care Provider] - Follow up as needed
[2019-06-28 23:48] LABS: CREATINE KINASE MB 0.52 ng/mL (<4.55)
[2019-06-28 23:50] LABS: TROPONIN I < 0.012 ng/mL
[2019-06-29 00:05] LABS: ALBUMIN 4.1 g/dL (3.5-5.0); ALKALINE PHOSPHATASE 81 U/L (38-126); ANION GAP 9 (5-19); ASPARTATE AMINO TRANSFERASE 23 U/L (14-36); BILIRUBIN,DIRECT 0.2 mg/dL (0.0-0.4); BILIRUBIN,TOTAL 0.3 mg/dL (0.2-1.3); BLOOD UREA NITROGEN 15 mg/dL (7-20); CALCIUM 10.1 mg/dL (8.4-10.2); CARBON DIOXIDE 28 mmol/L (22-30); CHLORIDE 97 mmol/L (98-107); GLUCOSE 103 mg/dL (75-110); TOTAL PROTEIN 7.3 g/dL (6.3-8.2)
[2019-06-29 00:34] LABS: APPEARANCE,URINE SLIGHTLY-CLOUDY; BILIRUBIN,URINE NEGATIVE (NEGATIVE); COLOR,URINE YELLOW; GLUCOSE, URINE NEGATIVE (NEGATIVE); KETONES,URINE NEGATIVE (NEGATIVE); LEUKOCYTE ESTERASE,URINE NEGATIVE (NEGATIVE); NITRITE,URINE NEGATIVE (NEGATIVE); PROTEIN,URINE NEGATIVE (NEGATIVE); URINE SPECIFIC GRAVITY 1.021; UROBILINOGEN,URINE NEGATIVE mg/dL (<2.0)
[2019-06-29 00:38] LABS: A TYPE INFLUENZA AG NEGATIVE (NEGATIVE); B INFLUENZA AG NEGATIVE (NEGATIVE)
--- NOTE | 2019-06-29 00:43 | RADIOLOGY REPORT (SQ) ---
EXAM DESCRIPTION: XR CHEST 1 VIEW COMPLETED DATE/TME: 06/28/2019 00:00 CLINICAL HISTORY: 49 years, Female, chest tightness COMPARISON: 11/05/2018 chest NUMBER OF VIEWS: 1 TECHNIQUE: Portable chest LIMITATIONS: None. FINDINGS: The heart size is normal. Calcified granuloma left lung base. Lungs are otherwise clear. No pneumothorax IMPRESSION: No acute cardiopulmonary process copyright 2010 [employer]- All Rights Reserved
[2019-06-29 01:29] VITALS: BP 109/70
--- NOTE | 2019-06-29 16:48 | EKG REPORT ---
SEVERITY:- BORDERLINE ECG - SINUS RHYTHM BORDERLINE IVCD WITH LAD BORDERLINE R WAVE PROGRESSION, ANTERIOR LEADS : Confirmed by: Ariella Marion 29-Jun-2019 16:47:34
== END 2019-06-29 01:29 | disposition home or self-care (01) ==
LOC: ER 22:30
DX: J06.9 Acute upper respiratory infection, unspecified (principal); B97.89 Other viral agents as the cause of diseases classified elsewhere; D64.9 Anemia, unspecified; R05 Cough; R06.02 Shortness of breath; J34.89 Other specified disorders of nose and nasal sinuses; J02.9 Acute pharyngitis, unspecified; R07.89 Other chest pain; R09.81 Nasal congestion; R50.9 Fever, unspecified; I45.9 Conduction disorder, unspecified; I10 Essential (primary) hypertension; Z87.892 Personal history of anaphylaxis; Z91.030 Bee allergy status; Z88.8 Allergy status to other drugs, medicaments and biological substances; Z91.013 Allergy to seafood; Z20.828 Contact with and (suspected) exposure to other viral communicable diseases
CPT/HCPCS: 36415; 71045; 80053; 81001; 81025; 82550; 82553; 84484; 85025; 87635; 87804; 93005; 93010; 99284

== ENCOUNTER → 2019-12-22 | Outpatient (CLI) | payer OTHER | LOC: RAD 09:36 | PROVIDERS: ATTEND Family Medicine | DX: J32.9 Chronic sinusitis, unspecified (principal) | CPT/HCPCS: 70486 ==